=== PATIENT | female | born 1970 | race Caucasian/White ===

== ENCOUNTER → 2020-08-01 15:17 | Outpatient (CLI) | payer MEDICAID, SELFPAY ==
[2020-08-01 15:31] LABS: Chloride 107 mmol/L (98-107); Sodium 142 mmol/L (136-145)
[2020-08-01 15:32] LABS: Potassium 4.1 mmoL/L (3.5-5.1)
[2020-08-01 15:34] LABS: Alanine Aminotransferase 19 U/L (12-78); Albumin Level 4.1 g/dl (3.5-5.0); Albumin/Globulin Ratio 1.4 (1.1-1.8); Alkaline Phosphatase 96 U/L (38-126); Anion Gap 8.1 mEq/L (5-15); Aspartate Amino Transferase 28 U/L (14-36); Bilirubin,Total 0.4 mg/dl (0.2-1.3); Blood Urea Nitrogen 14 mg/dl (7-17); Carbon Dioxide 31 mmol/L (22.0-30.0); Cholesterol 207 mg/dl (140-200); Estimated Glomerular Filt Rate 88 ml/min (>60); GFR (African American) 106 ML/MIN (>60); Globulin 2.9 g/dL (1.3-3.2); Triglycerides 119 mg/dl (30-150); VLDL Cholesterol 24 mg/dL (0-40)
[2020-08-01 15:35] LABS: Calcium 9.7 mg/dl (8.4-10.2); Chol/HDL Ratio 3.6 (1-3.5); Glucose 110 mg/dl (74-100); HDL Cholesterol 57 mg/dl (40-60)
[2020-08-01 15:38] LABS: Creatinine,Urine Random 81 mg/dL (Not Estab.)
[2020-08-01 15:42] LABS: Microalbumin/Creatinine Ratio 13.5
[2020-08-01 15:45] LABS: Direct LDL Cholesterol 126.61 mg/dL (100-129)
[2020-08-01 15:51] LABS: T4 (Thyroxine) 9.6 ug/dl (5.53-11.0)
[2020-08-01 16:19] LABS: Basophils # 0.1 K/mm3 (0-0.2); Basophils % 0.8 % (0.1-2.0); Eosinophils # 0.2 K/mm3 (0.0-0.4); Eosinophils % 2.1 % (0.1-12.0); Hematocrit 50.8 % (37.0-47.0); Hemoglobin 16.6 g/dL (12.2-16.2); Lymphocytes % 32.3 % (10-50); Mean Corpuscular HGB Conc 32.6 g/dL (31.8-35.4); Mean Corpuscular Hemoglobin 30.2 pg (27.0-31.2); Mean Corpuscular Volume 92.5 fl (81-99); Mean Platelet Volume 9.8 fl (7.4-10.4); Monocytes # 0.3 K/mm3 (0.1-1.0); Monocytes % 3.6 % (1.7-9.3); Neutrophils # 5.6 K/mm3 (1.8-7.8); Neutrophils % 61.2 % (37.0-80.0); Platelet Count 200 K/mm3 (142-424); Red Blood Count 5.49 M/mm3 (4.20-5.40); Red Cell Distribution Width 13.8 % (11.5-17.5); White Blood Count 9.1 K/mm3 (4.8-10.8)
[2020-08-01 16:44] LABS: Hemoglobin A1C 8.7 % (4.0-6.0)
== END ==
PROVIDERS: Visit Provider Family Medicine
DX: E11.9 Type 2 diabetes mellitus without complications (principal); E78.5 Hyperlipidemia, unspecified; Z79.4 Long term (current) use of insulin; Z79.899 Other long term (current) drug therapy
CPT/HCPCS: 80053; 80061; 82043; 82570; 83036; 84436; 85025

== ENCOUNTER → 2020-08-09 10:37 | Outpatient (CLI) | payer MEDICAID, SELFPAY ==
--- NOTE | 2020-08-09 10:43 | XR_ITS ---
PROCEDURE: XR KNEE RT 3V CLINICAL INDICATION: pain Medial right knee pain COMPARISON: No exams were available for comparison FINDINGS: No fracture or dislocation. No lytic or blastic change. There is normal mineralization. Tricompartmental osteoarthritic changes are present mild in nature. Other findings:None. IMPRESSION: Osteoarthritis Dictated by: Félix Stephens MD 08/09/2020 15:45 Félix Stephens MD in [place] 08/09/2020 15:45
== END ==
PROVIDERS: PCP Family Medicine; Visit Provider Family Medicine
DX: M25.561 Pain in right knee (principal)
CPT/HCPCS: 73562

== ENCOUNTER → 2020-09-20 13:23 | Outpatient (CLI) | payer MEDICAID, SELFPAY ==
--- NOTE | 2020-09-20 13:30 | XR_ITS ---
PROCEDURE: XR KNEE RT 4V CLINICAL INDICATION: right knee pain; weightbearing COMPARISON: CR XR KNEE RT 3V from 08/09/2020 FINDINGS: No fracture or dislocation. No lytic or blastic change. There is normal mineralization. Minimal osteoarthritic changes are present involving the medial compartment and patellofemoral joint. Not significantly changed. Other findings:None. IMPRESSION: Minimal osteoarthritic change Dictated by: Félix Stephens MD 09/20/2020 15:32 Félix Stephens MD in [place] 09/20/2020 15:32
--- NOTE | 2020-09-20 13:30 | XR_ITS ---
PROCEDURE: XR HIP RT 2-3V W/PELVIS CLINICAL INDICATION: right hip pain COMPARISON: No exams were available for comparison FINDINGS: No fracture or dislocation is evident. No significant degenerative change. No lytic or blastic change. Unremarkable soft tissues. IMPRESSION: No acute findings. Dictated by: Félix Stephens MD 09/20/2020 15:34 Félix Stephens MD in [place] 09/20/2020 15:34
== END ==
PROVIDERS: PCP Family Medicine; Visit Provider Orthopaedic Surgery
DX: M25.551 Pain in right hip (principal); M25.561 Pain in right knee
CPT/HCPCS: 73502; 73564

== ENCOUNTER → 2020-10-06 09:23 | Outpatient (CLI) | payer MEDICAID, SELFPAY ==
[2020-10-06 10:30] LABS: Coronavirus 19 IgG Antibody Negative (Negative); Coronavirus 19 IgM Antibody Negative (Negative)
== END ==
PROVIDERS: Visit Provider Internal Medicine Gastroenterology
DX: Z01.812 Encounter for preprocedural laboratory examination (principal); Z11.52 Encounter for screening for COVID-19; Z12.11 Encounter for screening for malignant neoplasm of colon
CPT/HCPCS: 36415; 86328

== ENCOUNTER 2020-10-07 10:01 | Day surgery (SDC) | payer MEDICAID, SELFPAY ==
[2020-09-29 11:08] VITALS: BMI 34.4
[2020-10-07 10:30] VITALS: BP 118/69; PULSE 83; RESP 16; TEMP 36.6; O2SAT 83
--- NOTE | 2020-10-07 10:34 | HMH.ANESCL ---
[facility] Anesthesia Checklist - Patient Identification Patient Identification: Arm Band - Structural Data Admitted From: Home Planned Operative Procedure/s: Colonscopy Consent for Planned Operative Procedure(s) Verified: Yes - NPO Status Verified Time NPO: 00:00 - Neurological Assessment Level of Consciousness: Awake, Alert Hx Seizures: No Numbness or tingling in extremities: No - Anesthesia Plan Anesthesia Risk discussed: Yes Anesthesia Plan: Verified ASA Class: III Anesthesia Type: MAC [facility] History I have reviewed the patient's past medical history: Yes Medical History: Reports:: Diabetes Mellitus Type 2, Hyperlipidemia Denies:: Cancer, Diabetes Mellitus Type 1, Internal Pacemaker, MRSA, Seizures *Have you ever received a pneumonia vaccine?: No *Have you received a flu vaccine this season?: No Other Medical History: Reports: Arthritis Anesthesia experience/problems:: None Other Surgeries: Yes: Dilation and Curettage, Hysterectomy-Partial. No: Pacemaker Amputation: No Fractures: No - *Social History Smoking Status: Current every day smoker Tobacco Type: cigarettes # Packs/Day (cigarettes): 1 Alcohol Intake: never Substance Use Type: denies use *Occupational Status:: unemployed Housing: house Household Members: spouse *Travel in the last 8 weeks: None Family Hx:: Cancer, Diabetes
[2020-10-07 10:40] LABS: POC Glucose,Bedside 96 (70-110)
[2020-10-07 10:49] VITALS: O2SAT 97
--- NOTE | 2020-10-07 10:53 | P.PCN_ITS ---
[facility] Procedure Note Procedure Note:: Colonoscopy Procedure Report: Colonoscopy with snare cautery and Endo Clip placement Endoscopist: Pierce Salmeron II, MD Referring physician: Timothy Castro MD Date of Procedure: October 07, 2020 Equipment: Olympus 190 variable stiffness pediatric colonoscope Sedation: MAC sedation Indication: Mrs. Pedroza is a 50-year-old female who is here for diagnostic colonoscopy secondary to a positive Cologuard test. She does state that she has seen dark blood with her bowel movements for more than a year. She has had some left lower quadrant abdominal crampy discomfort. She also reports having some constipation for a while. She reports no weight loss or family history of colon cancer. This is her first colonoscopy. Procedure: Prior to the procedure, a history and physical exam was performed, and patient's medications and allergies were reviewed. The risks, benefits and alternatives of the sedation and procedure were discussed with the patient. All questions were answered and informed consent was obtained. The patient was brought to the procedure room. Patient identification and proposed procedure were verified by the physician and the nurse. The patient was placed in a left lateral decubitus position and the scope was passed under direct vision. Throughout the procedure, the patient's blood pressure, pulse, and oxygen saturations were monitored continuously. The colonoscopy was accomplished without difficulty. The patient tolerated the procedure well. Findings: On digital rectal examination there was normal rectal tone. There were no external hemorrhoids. The colonoscope was introduced through the anal canal to the rectum and advanced to the cecum. The ileocecal valve and appendiceal orifice were identified. The scope was advanced a short distance into the ileum which appeared grossly normal. The scope was then withdrawn into the colon. The cecum, ascending and transverse colon and mucosa were grossly normal. There were scattered diverticuli throughout the descending and sigmoid colon (LEFT colon). There was a larger pedunculated 17 to 18 mm polyp on a very thick stalk that was removed via snare cautery in the sigmoid colon (at 25 cm from the pectinate line). The post polypectomy site on the stalk was closed with a single Endo Clip. The rectum itself was normal. Upon retroflexion within the rectum there were grade 2 internal hemorrhoids. The preparation was fair to poor throughout with [place] Preparation Score of 6 out of 9. The cecal time was 14 minutes. Impression: 1. Large pedunculated sigmoid polyp (17-18 mm) 2. Left-sided diverticulosis 3. Grade 2 internal hemorrhoids 4. Fair to poor bowel preparation Plan: The polyp is an advanced adenoma. I will follow up the polyp histology. Based upon this and the patient's bowel preparation, I would recommend repeat screening/surveillance colonoscopy again in 1 year. If there is dysplasia or adenocarcinoma within this larger adenoma, I will determine whether there is a margin. The patient does have IBS constipation and spastic diverticular disease (functional intestinal disorder). I will discussed dietary measures and fiber bowel regimen on a long-term daily maintenance basis. If her bleeding persists, I would consider hemorrhoid ablation/coagulation or banding at the time of her next colonoscopy.
[2020-10-07 11:20] VITALS: BP 97/61; PULSE 99; RESP 18; TEMP 36.3; O2SAT 96
[2020-10-07 11:30] VITALS: BP 96/55; PULSE 94; RESP 18; O2SAT 97
[2020-10-07 11:40] VITALS: BP 129/88; PULSE 96; RESP 18; O2SAT 98
[2020-10-07 11:50] VITALS: BP 126/82; PULSE 89; RESP 18; O2SAT 98
== END 2020-10-07 12:15 | disposition home or self-care (01) ==
LOC: OUTP 10:02
PROVIDERS: PCP Family Medicine; Visit Provider Internal Medicine Gastroenterology
PROC: 0DJD8ZZ Inspection of Lower Intestinal Tract, Via Natural or Artificial Opening Endoscopic (ICD-10-PCS; CPT 45378; principal; 2020-10-07 11:00)
DX: K58.1 Irritable bowel syndrome with constipation (principal); K59.9 Functional intestinal disorder, unspecified; K63.5 Polyp of colon; K57.30 Diverticulosis of large intestine without perforation or abscess without bleeding; K64.1 Second degree hemorrhoids; E11.9 Type 2 diabetes mellitus without complications; E78.5 Hyperlipidemia, unspecified; M19.90 Unspecified osteoarthritis, unspecified site; Z90.711 Acquired absence of uterus with remaining cervical stump; Z80.9 Family history of malignant neoplasm, unspecified; Z83.3 Family history of diabetes mellitus; Z79.899 Other long term (current) drug therapy
CPT/HCPCS: 45385; 82962

== ENCOUNTER → 2020-10-31 13:45 | Outpatient (CLI) | payer MEDICAID, SELFPAY ==
[2020-10-31 13:54] LABS: Basophils # 0.1 K/mm3 (0-0.2); Basophils % 0.8 % (0.1-2.0); Eosinophils # 0.2 K/mm3 (0.0-0.4); Eosinophils % 2.8 % (0.1-12.0); Hematocrit 50.3 % (37.0-47.0); Hemoglobin 15.9 g/dL (12.2-16.2); Lymphocytes # 2.3 K/mm3 (0.7-4.5); Lymphocytes % 29.8 % (10-50); Mean Corpuscular HGB Conc 31.6 g/dL (31.8-35.4); Mean Corpuscular Hemoglobin 29.3 pg (27.0-31.2); Mean Corpuscular Volume 92.6 fl (81-99); Mean Platelet Volume 9.7 fl (7.4-10.4); Monocytes # 0.4 K/mm3 (0.1-1.0); Monocytes % 4.6 % (1.7-9.3); Neutrophils # 4.7 K/mm3 (1.8-7.8); Platelet Count 194 K/mm3 (142-424); Red Blood Count 5.43 M/mm3 (4.20-5.40); White Blood Count 7.6 K/mm3 (4.8-10.8)
[2020-10-31 14:11] LABS: Alanine Aminotransferase 17 U/L (12-78); Albumin Level 4.1 g/dl (3.5-5.0); Albumin/Globulin Ratio 1.8 (1.1-1.8); Alkaline Phosphatase 100 U/L (38-126); Anion Gap 8.3 mEq/L (5-15); Aspartate Amino Transferase 25 U/L (14-36); Bilirubin,Total 0.6 mg/dl (0.2-1.3); Blood Urea Nitrogen 12 mg/dl (7-17); Calcium 9.4 mg/dl (8.4-10.2); Carbon Dioxide 27 mmol/L (22.0-30.0); Chloride 109 mmol/L (98-107); Chol/HDL Ratio 3.9 (1-3.5); Cholesterol 186 mg/dl (140-200); Estimated Glomerular Filt Rate 88 ml/min (>60); GFR (African American) 106 ML/MIN (>60); Globulin 2.3 g/dL (1.3-3.2); Glucose 198 mg/dl (74-100); HDL Cholesterol 48 mg/dl (40-60); Potassium 4.3 mmoL/L (3.5-5.1); Sodium 140 mmol/L (136-145); Total Protein,Serum 6.4 g/dl (6.3-8.2); Triglycerides 97 mg/dl (30-150); VLDL Cholesterol 19 mg/dL (0-40)
[2020-10-31 14:21] LABS: Direct LDL Cholesterol 117.65 mg/dL (100-129)
[2020-10-31 14:27] LABS: T4 (Thyroxine) 8.9 ug/dl (5.53-11.0)
[2020-10-31 14:41] LABS: Thyroid Stimulating Hormone 1.59 uIU/mL (0.465-4.68)
[2020-10-31 15:06] LABS: Creatinine,Urine Random 50 mg/dL (Not Estab.)
[2020-10-31 15:28] LABS: Microalbumin < 6.000 mg/L (0-16.7)
[2020-10-31 17:45] LABS: Hemoglobin A1C 7.7 % (4.0-6.0)
== END ==
PROVIDERS: Visit Provider Family Medicine
DX: E11.9 Type 2 diabetes mellitus without complications (principal); Z79.4 Long term (current) use of insulin; Z79.899 Other long term (current) drug therapy
CPT/HCPCS: 80053; 80061; 82043; 82570; 83036; 84436; 84443; 85025; 87086

== ENCOUNTER → 2021-02-21 10:55 | Outpatient (CLI) | payer MEDICAID, SELFPAY ==
--- NOTE | 2021-02-21 10:56 | CA_ITS ---
APPROVED REPORT Dealer Relationship Manager: Selena Billings RVT Laterality: Bilateral Study Quality: Good Indications: vision changes Risk Factors Hyperlipidemia Diabetes Smoking Doppler Spectral Velocity Analysis ECA (R) 201.10/42.30 cm/s ECA (L) 207.50/33.30 cm/s dICA (R) 118.70/49.20 cm/s dICA (L) 256.70/134.30 cm/s Flex (R) 100.50/40.60 cm/s Flex (L) 292.50/134.30 cm/s pICA (R) 59.90/27.80 cm/s pICA (L) 456.90/214.10 cm/s dCCA (R) 118.70/34.20 cm/s dCCA (L) 91.00/20.50 cm/s pCCA (R) 136.90/31.00 cm/s pCCA (L) 142.20/26.90 cm/s Vert (R) 82.00/28.20 cm/s Vert (L) 102.50/27.30 cm/s ICA/CCA 1.00 ICA/CCA 5.02 Findings Study suggests 20-49% stenosis of the right internal cartoid artery. Study suggests 70-99% stenosis of the left internal cartoid artery. Study suggests retrograde flow of the left verterbral artery, right verterbal artery is antegrade. Conclusion Study suggests 20-49% stenosis of the right internal cartoid artery. Study suggests 70-99% stenosis of the left internal cartoid artery. Study suggests retrograde flow of the left verterbral artery, right verterbal artery is antegrade. Critical Notification Critical Value: Yes Physician Notified Date: 02/21/2021 Time: 11:33 Physician Name: Dashawn Castro Electronically signed by : Félix Stephens MD 02/21/2021 16:33:31
== END ==
PROVIDERS: PCP Family Medicine; Visit Provider Family Medicine
DX: G45.3 Amaurosis fugax (principal)
CPT/HCPCS: 93880

== ENCOUNTER → 2021-04-11 18:10 | Outpatient (CLI) | payer MEDICAID, SELFPAY | PROVIDERS: Visit Provider Family Medicine | DX: R39.9 Unspecified symptoms and signs involving the genitourinary system (principal); B96.20 Unspecified Escherichia coli [E. coli] as the cause of diseases classified elsewhere | CPT/HCPCS: 87086; 87088; 87186 ==

== ENCOUNTER → 2021-05-09 14:09 | Outpatient (CLI) | payer MEDICAID, SELFPAY ==
[2021-05-09 14:12] LABS: Microscopic, Urine URINE MICROSCOPIC (MICROSCOPIC)
[2021-05-09 14:16] LABS: Appearance,Urine SL CLOUDY (Clear); Bilirubin,Urine Negative (Negative); Blood, Urine Negative (Negative); Color,Urine YELLOW (Yellow); Glucose,Urine (UA) 1+ (Negative); Ketones,Urine Negative (Negative); Leukocyte Esterase,Urine Negative (Negative); Nitrate,Urine Negative (Negative); PH,Urine 5.5 (5.0-8.5); Protein,Urine Negative (Negative); Specific Gravity, Urine 1.015 (1.005-1.030); Urobilinogen,Urine 0.2 EU/dl (0.2)
[2021-05-09 14:44] LABS: Bacteria,Urine 1+ /lpf
== END ==
PROVIDERS: Visit Provider Family Medicine
DX: E11.9 Type 2 diabetes mellitus without complications (principal)
CPT/HCPCS: 81001

== ENCOUNTER → 2021-06-06 14:07 | Outpatient (CLI) | payer MEDICAID, SELFPAY | PROVIDERS: Visit Provider Family Medicine | DX: R82.90 Unspecified abnormal findings in urine (principal) | CPT/HCPCS: 87086 ==

== ENCOUNTER → 2021-11-22 14:19 | Outpatient (CLI) | payer MEDICAID, SELFPAY ==
[2021-11-22 13:10] LABS: Coronavirus 19, PCR Not Detected (NotDetected); Influenza A, PCR Not Detected (NotDetected); Influenza B, PCR Not Detected (NotDetected)
== END ==
PROVIDERS: PCP Nurse Practitioner Family; Visit Provider Nurse Practitioner Family
DX: R69 Illness, unspecified (principal); R10.9 Unspecified abdominal pain; R11.10 Vomiting, unspecified; N30.00 Acute cystitis without hematuria; J06.9 Acute upper respiratory infection, unspecified; Z20.822 Contact with and (suspected) exposure to COVID-19
CPT/HCPCS: 87086; C9803; U0003; U0005